=== PATIENT | male | born 1975 | race African-American/Black ===

== ENCOUNTER 2019-11-06 18:34 | Emergency (ER) | payer BC, OTHER ==
[2019-11-07 14:32] LABS: SARS-CoV-2 MS2 Positive; SARS-CoV-2 N Gene Negative; SARS-CoV-2 S Gene Negative; SARS-CoV-2 orf1ab Negative
== END 2019-11-06 18:50 | disposition home or self-care (01) ==
LOC: ERS 18:34
DX: Z53.21 Procedure and treatment not carried out due to patient leaving prior to being seen by health care provider (principal)
CPT/HCPCS: 87635; U0003